=== PATIENT | male | born 1965 | race Caucasian/White ===

== ENCOUNTER 2023-02-04 06:35 | Day surgery (SDC) | payer BC ==
[2023-01-30 12:22] VITALS: BMI 28.8
[~2023-02-04 06:35] MED LIST: BUPIVACAINE HCL/PF 0.5% (5MG/ML) 10 ML VIAL IJ ONE; LIDOCAINE 1% P/F 10 MG/ML VIAL INF ONE
[2023-02-04] MEDS ORDERED: LIDOCAINE HCL 1%, 10 MG/ML (20ML VIAL) ONE ×2 (08:20→10:20)
[2023-02-04] MEDS ORDERED: BUPIVACAINE HCL/PF 0.5% (5MG/ML) 10 ML VIAL ONE (08:21)
[2023-02-04] MEDS ORDERED: BUPIVACAINE HCL/PF 0.25% (2.5MG/ML) 10 ML VIAL ONE ×2 (10:20→13:12)
[2023-02-04 11:46] LABS: HEMATOCRIT 44.4 % (35.4-49); HEMOGLOBIN 14.8 GM/dL (11.7-16.9); MCH 29.6 pg (25.7-33.7); MCHC 33.3 g/dl (32.0-35.9); MEAN CELL VOLUME 89.1 fl (80-96); MEAN PLT VOLUME 7.8 fl (7.5-11.1); PLATELET COUNT 318 10^3/uL (134-434); RBC 4.99 M/mm3 (4.00-5.60); RDW 13.9 % (11.9-15.9); WHITE BLOOD COUNT 7.9 K/mm3 (4.0-10.0)
[2023-02-04] MEDS ORDERED: KETOROLAC TROMETHAMINE 30 MG/1 ML VIAL ONE (12:57)
[2023-02-04] MEDS ORDERED: LIDOCAINE HCL/PF 2% SDV 5ML VIAL ONE (12:57)
[2023-02-04] MEDS ORDERED: PROPOFOL 40 ML ONE (12:57)
[2023-02-04] MEDS ORDERED: MIDAZOLAM HCL 2 MG/2 ML SINGLE DOSE VIAL ONE (12:58)
[2023-02-04] MEDS ORDERED: ONDANSETRON 4 MG/2 ML VIAL IVPUSH PRN (12:58)
[2023-02-04] MEDS ORDERED: PROMETHAZINE HCL 25 MG/1 ML VIAL IVPB PRN (12:58)
[2023-02-04] MEDS ORDERED: oxyCODONE HCL 5 MG TABLET PO PRN ×2 (12:58)
[2023-02-04] MEDS ORDERED: LACTATED RINGERS SOLUTION 1,000 ML IV SCH (13:00)
[2023-02-04] MEDS ORDERED: HEPARIN NA (PORCINE) 5,000 UNITS/ML 1ML VIAL ONE (13:13)
[2023-02-04] MEDS ORDERED: ceFAZolin SODIUM 1 GM VIAL IVPB ONE (13:27)
[2023-02-04] MEDS ORDERED: ceFAZolin SODIUM 1 GM VIAL ONE (13:27)
[2023-02-04] MEDS ORDERED: BUPIVACAINE HCL/PF 0.5% (5MG/ML) 10 ML VIAL IJ ONE ×2 (13:31)
[2023-02-04 15:26] VITALS: RESP 18
[2023-02-04 15:57] VITALS: BP 127/74; PULSE 78; TEMP 97.7
== END 2023-02-04 16:15 | disposition home or self-care (01) ==
LOC: JASU-SURG 06:35
PROVIDERS: ATTEND Surgery
PROC: 0JBC0ZZ Excision of Pelvic Region Subcutaneous Tissue and Fascia, Open Approach (ICD-10-PCS; principal; 2023-02-04 10:45)
DX: D17.39 Benign lipomatous neoplasm of skin and subcutaneous tissue of other sites (principal)
CPT/HCPCS: 36415; 85027; 86850; 86900; 86901; 94760; J1644